=== PATIENT | male | born 1945 | race Caucasian/White ===

== ENCOUNTER 2018-06-12 11:00 | Outpatient (CLI) | payer MEDICARE, OTHER ==
[~2018-06-12] VITALS: Ht 188 cm; Wt 136.8 kg
--- NOTE | ~2018-06-12 | OP ---
PATIENT NAME: JONY LUTZ MEDICAL RECORD: [id number] :49 LOCATION:D.CAT ADMISSION DATE: SURGEON: KERVIN MARTÍNEZ MD DATE OF OPERATION: 06/12/2018 LEFT HEART CATHETERIZATION AND SELECTIVE CORONARY ANGIOGRAPHY PLUS RUG WEAVER AND STENT REPORT PROCEDURES: Left heart catheterization, selective coronary angiography, right radial approach. CATHETERS: Radial sheath, [place] catheter. The procedure was well tolerated. We proceeded immediately to RUG WEAVER and stenting of LAD after diagnostic was finished. FINDINGS: Left ventriculography in 30-degree SUAZO view: Normal wall motion and normal systolic function. CORONARY ANATOMY: LEFT MAIN: Left main is free of disease. LAD: It has a tight 90% plus stenosis in its midportion, somewhat diffusely diseased. CIRCUMFLEX: Circumflex is free of disease. RIGHT CORONARY ARTERY: Somewhat of a codominant system, free of disease. IMPRESSION: Normal LV systolic function. A 90% plus stenosis in the LAD. PLAN: Intervention momentarily. DESCRIPTION OF PROCEDURE: Using indwelling sheath, a XB JL3.5 guiding catheter provided excellent guide catheter support followed by 300-cm Whisper wire was placed across the tightly occluded LAD, 90% plus, down this portion of vessel. Predeployment balloon was a 3.0 x 15-mm [place]. Next, stents were deployed in the following fashion. A 3.5 x 18-mm Drummonds drug-eluting stent inflated up to 14 atmospheres distally and more proximally at 14 atmospheres was a 3.5 x 15-mm Yon drug-eluting stent. Final angiography shows excellent resolution of 90% plus stenosis with no significant residual. YAMIL flow was 3 throughout the procedure. Integrilin was used in the case. Sheath was closed with ExoSeal device. Plavix was loaded in the lab. TRANSINT:[id number] Voice Confirmation ID: [id number] DOCUMENT ID: [id number] KERVIN MARTÍNEZ MD at 2229 CC: [id number] DICTATION DATE: 06/12/18 1359 COMFORT STATION ATTENDANT: 06/12/18 1633 DEP CLI 06/12/18 [id number] [place] [address]
--- NOTE | ~2018-06-12 | HEMODYNAMI ---
PATIENT:JONY LUTZ MEDICAL RECORD: [id number] : 49 LOCATION:DSERA ADMISSION DATE: 06/12/18 Generatedon:06/12/201813:47 Patient name: JONY LUTZ Patient #: [id number] SSN: DO B: 1945 Date of study: 06/12/2018 Page: Of Hemodynamic Procedure Report Patient Data Patient Demographics Procedure consent was obtained First Name: JONY Gender: Male Last Name: NELDA : 1945 Patient #: [id number] Age: 73 year(s) Race: Unknown Additional ID: [id number] Contact details [address]: [address] [place] [address] State: [place] City: [place] Zip code: [address] Past Medical History Allergies Allergen Reaction Date Comments Reported Other allergy 06/12/2018 NAPROSYN, PCN, SULFA Admission Admission Data Admission Date: 06/12/2018 Admission Time: 11:00 Height (in.): 71 BSA: 2.52 (m2) Height (cm.): 180.34 BMI: 42.54 (kg/m2) Weight (lbs.): 305 Weight (kg.): 138.35 Lab Results Lab Result Date: 06/12/2018 Lab Result Time: 0:00 Biochemistry Name Units Result Min Max BUN mg/dl 9 --(*---)-- 7 18 Creatinine mg/dl 0.8 --(-*--)-- 0.6 1.3 CBC Name Units Result Min Max Hemoglobin g/dl 15.4 --(-*--)-- 13.5 17.5 Procedure Procedure Types Cath Procedure Diagnostic Procedure C [facility] w/Coronaries Sedation Charges Moderate Sedation up to 15 minutes PCI Procedure Coronary Stent Coronary Stent Initial Procedure Description Procedure Date Procedure Date: 06/12/2018 Procedure Start Time: 13:16 Procedure End Time: 13:46 Procedure Staff Name Function Williams Rachel MD Performing Physician Virginia Sim RT Monitor Shanita Kerr RT Scrub Ngoc Bakari RN Nurse Procedure Data Cath Procedure Fluoroscopy Diagnostic fluoroscopy Total fluoroscopy Time: time: 10.4 min 10.4 min Diagnostic fluoroscopy Total fluoroscopy dose: dose: 1456 mGy 1456 mGy Contrast Material Contrast Material Type Amount (ml) Isovue 300 120 Entry Location Entry Primary Successful Side Size Upsize Upsize Entry Closure Larry ccessful Closure Location (Fr) 1 (Fr) 2 (Fr) Remarks Device Remarks Radial Right 6 Fr Mechanical artery Short Compression Estimated blood loss: 10 ml Diagnostic catheters Device Type Used For End Catheter Placement DIAGNOSTIC Fairborn 110cm 5 Procedure Fr catheter ([id number]) DIAGNOSTIC JL 3.5 5Fr Procedure catheter ([id number]) Procedure Complications No complications Procedure Medications Medication Administration Route Dosage 0.9% NaCl I.V. ml/hr Oxygen etCO2 Nasal cannula 2 l/min Lidocaine 2% added to field 20 Heparin Flush Bag added to field 2 bags (1000units/500ml NS) Radial Cocktail added to field 1 syringe (Verapomil 2mg/Nitro 400mcg/Heparin 1500units) Versed I.V. 2 mg Fentanyl I.V. 100 mcg Versed I.V. 2 mg Heparin Bolus I.V. 5000 units Integrilin (Bolus I.V. 11.3 ml 2mg/ml) Plavix P.O. 600 mg Hemodynamics Rest BSA: 2.52 (m2) HGB: 15.4 (g/dl) O2 Consumption: Estimated: 282.22 (ml/min) O2 Co nsumption indexed: Estimated:111.99 (ml/min/m) Heart Rate: 61 (bpm) Pressure Samples Time Site Value (mmHg) Purpose Heart Use Rate(bpm) 13:20 LV 111/9,15 Snapshot 76 Gradients Valve Time Site Site Mean SEP/DFP Peak To Heart Use 1 2 (mmHg) (sec/min) Peak Rate (mmHg) (bpm) Aortic 13:20 LV AO 70 Snapshots Pre Cath Intra NCS Post Cath Vital Signs Time Heart Resp SPO2 etCO2 NIBP (mmHg) Rhythm Pain Sedation Rate (ipm) (%) (mmHg) Status Level (bpm) 12:47:49 59 16 98 34.7 147/77(119) NSR 0 (11) 10(A) , No pain 12:52:23 61 12 98 36.2 144/76(115) NSR 0 (11) 10(A) , No pain 12:56:52 67 11 97 36.2 139/77(115) NSR 0 (11) 10(A) , No pain 13:01:18 62 12 96 28 142/74(108) NSR 0 (11) 10(A) , No pain 13:05:40 60 11 97 33.2 131/74(96) NSR 0 (11) 10(A) , No pain 13:10:02 62 10 98 36 136/74(113) NSR 0 (11) 10(A) , No pain 13:14:20 58 12 96 33.2 132/73(98) NSR 0 (11) 10(A) , No pain 13:18:43 65 11 97 33.2 121/64(98) NSR 0 (11) 9(A) , No pain 13:22:57 69 13 96 30 115/63(82) NSR 0 (11) 9(A) , No pain 13:27:17 65 10 97 32 128/66(100) NSR 0 (11) 9(A) , No pain 13:31:41 63 12 96 30 124/67(101) NSR 0 (11) 9(A) , No pain 13:36:03 65 11 96 32 127/71(98) NSR 0 (11) 10(A) , No pain 13:40:28 60 12 97 35.4 125/67(101) NSR 0 (11) 10(A) , No pain 13:44:44 60 11 97 33.2 128/72(107) NSR 0 (11) 10(A) , No pain Medications Time Medication Route Dose Verified Delivered Reason Not es Effectiveness by by 12:48:48 0.9% NaCl I.V. ml/hr Williams Grossman used for Virginie Bakari procedure MD CORDOVA 12:48:59 Oxygen etCO2 2 l/min Williams Grossman used for Nasal Virginie Bakari procedure cannula MD CORDOVA 12:49:05 Lidocaine 2% added 20ml Williams Kramer for local to vial [facility] field MD SHERMAN 12:49:11 Heparin Flush added 2 bags Williams Kramer used for Bag to [facility] procedure (1000units/500ml field MD SHERMAN NS) 12:50:20 Radial Cocktail added 1 Wililams Kramer used for (Verapomil to syringe Virginie Virginie procedure 2mg/Nitro field MD SHERMAN 400mcg/Heparin 1500units) 13:12:36 Versed I.V. 2 mg Williams Ngoc for sedation [facility] Harshal Villegas MD RN 13:12:42 Fentanyl I.V. 100 mcg Williams Bainyla for sedation St Harshal Villegas MD, RN 13:16:27 Versed I.V. 2 mg Williams Ngoc for sedation St Harshal Villegas MD, RN 13:32:12 Heparin Bolus I.V. 5000 Williams Ngoc for cirilo ified units [facility] anticoagulation with Dr. MD CORDOVA [place] 13:33:46 Integrilin I.V. 11.3 ml Williams Bainyla for was anurag (Bolus 2mg/ml) [place] Bakari anticoagulation 8.7 mL MD CORDOVA 13:39:28 Plavix P.O. 600 mg Williams Bainyla for [facility] antiplatelet MD CORDOVA therapy Procedure Log Time Note 12:30:35 Ngoc Villegas RN sent for patient. Start room use. 12:35:27 Signed procedure consent form obtained from patient. 12:35:28 Time tracking: Regular hours (M-F 7:00 - 5:00) 12:35:33 Plan of Care:Hemodynamics will remain stable., Cardiac rhythm will remain stable., Comfort level will be maintained., Respiratory function will remain adequate., Patient/ family verbilizes understanding of procedure., Procedure tolerated without complication., Recovers from procedure without complications.. 12:36:02 H&P Date Dictated: 06/07/2018 Within 30 days and on chart., H&P Addendum completed by physician on day of procedure. (MUST COMPLETE FOR ALL OUTPATIENTS). 12:36:09 Patient Height : 71 inches 12:36:13 Patient Weight : 305 lbs 12:39:43 Patient allergic to Other allergyNAPROSYN, PCN, SULFA 12:39:51 Patient received from Pre/Post Procedure Room to CCL 1 Alert and oriented. Tansferred to table in Supine position. 12:39:52 Warm blankets applied, and joe hugger turned on for patient comfort. 12:39:52 Correct patient and procedure confirmed by team. 12:39:53 ECG and BP/O2 sat monitors applied to patient. 12:46:21 Vital chart was started 12:48:48 0.9% NaCl ml/hr I.V. was administered by Ngoc Villegas RN; used for procedure; 12:48:59 Oxygen 2 l/min etCO2 Nasal cannula was administered by Ngoc Villegas RN; used for procedure; 12:49:05 Lidocaine 2% 20ml vial added to field was administered by Williams Rachel MD; for local anesthetic; 12:49:11 Heparin Flush Bag (1000units/500ml NS) 2 bags added to field was administered by Williams Rachel MD; used for procedure; 12:50:20 Radial Cocktail (Verapomil 2mg/Nitro 400mcg/Heparin 1500units) 1 syringe added to field was administered by Williams Rachel MD; used for procedure; 12:52:29 Baseline sample Acquired. 12:52:33 Rhythm: sinus rhythm 12:52:34 Full Disclosure recording started 12:52:35 Pre-procedure instructions explained to patient. 12:52:36 Pre-op teaching completed and patient verbalized understanding. 12:52:37 Family in patients room. 12:52:40 Patient NPO since Midnight. 12:52:44 Is the patient allergic to Iodine/contrast media? No. 12:52:47 Is patient on blood thinner?No 12:52:48 Patient diabetic? Yes. 12:52:49 If diabetic: On Metformin? No 12:52:52 Previous problem with sedation/anesthesia? No ? 12:52:52 Snore? Yes 12:52:55 Sleep apnea? Yes 12:53:01 Deviated septum? No 12:53:02 Opens mouth fully? Yes 12:53:03 Sticks out tongue? Yes 12:53:04 Airway obstruction? No ? 12:53:06 Dentures? No ? 12:53:15 Modified Jose's test Ulnar < 7 seconds 12:53:17 Patient pain scale 0/10 ?. 12:53:20 IV patent on arrival in left hand with 0.9% NaCl at [facility]. 12:53:25 Right Radial & Right Groin area was prepped with chlora-prep and draped in sterile fashion 12:53:26 Alarms reviewed by R. N. 12:53:27 Sharps counted by scrub and verified by R.N. 12:53:30 Use device set Radial Dx or PCI 12:53:31 ACIST Syringe (18170) opened to sterile field. 12:53:32 Bag Decanter (2001S) opened to sterile field. 12:53:33 ACIST Manifold (52260) opened to sterile field. 12:53:33 ACIST Hand Control (59677) opened to sterile field. 12:53:35 Tegaderm 4 x 4 (1626W) opened to sterile field. 12:53:36 Medline Cath Pack ([id number]) opened to sterile field. 12:53:37 DIAGNOSTIC WIRE .035 260cm J wire (624562) opened to sterile field. 12:53:37 MBrace Wrist Support ([id number]) opened to sterile field. 12:53:38 SHEATH 6Fr Prelude Radial ([id number]) opened to sterile field. 13:11:34 --------ALL STOP TIME OUT------ 13:11:34 Final Timeout: patient, procedure, and site verified with staff and physician. All members of the team are in agreement. 13:11:37 Right Radial & Right Groin site verified by team. 13:11:39 Physical assessment completed. ASA score P 2 - A patient with mild systemic disease as per Williams Rachel MD. 13:11:43 Sedation plan: IV Moderate Sedation Medication:Versed, Fentanyl 13:12:36 Versed 2 mg I.V. was administered by Ngoc Villegas RN; for sedation; 13:12:42 Fentanyl 100 mcg I.V. was administered by Ngoc Villegas RN; for sedation; 13:14:05 Lab Result : BUN 9 mg/dl 13:14:05 Lab Result : Creatinine 0.8 mg/dl 13:14:05 Lab Result : Hemoglobin 15.4 g/dl 13:14:09 Lab results completed and on chart. 13:15:52 Procedure started. 13:16:06 Local anesthetic to right radial artery with Lidocaine 2% by Williams Rachel MD.INITIAL ACCESS ONLY 13:16:27 Versed 2 mg I.V. was administered by Ngoc Villegas RN; for sedation; 13:17:01 A 6 Fr Short sheath was inserted into the Right Radial artery 13:17:37 A DIAGNOSTIC Fairborn 110cm 5 Fr catheter ([id number]) was advanced over the wire and used for Procedure. 13:18:38 LV gram done using SUAZO 13:18:48 Injector settings: Ml/sec: 7, Volume: 15, 13:20:29 EF : 55 % 13:20:38 LV hemodynamics recorded. 13:20:49 RCA angiography performed. 13:22:44 Catheter exchanged over wire. 13:23:03 GUIDE 5FR EBU 3.5 catheter ([id number]) opened to sterile field. 13:23:12 6 Fr EBU 3.5 guide catheter was inserted over the wire 13:25:21 UNABLE TO ENGAGE LCA. CATH REMOVED 13:26:04 A DIAGNOSTIC JL 3.5 5Fr catheter ([id number]) was advanced over the wire and used for Procedure. 13:27:54 LCA angiography performed. 13:27:55 Catheter exchanged over wire. 13:30:26 WHISPER 300cm guide wire ([id number]) opened to sterile field. 13:30:37 GUIDE 6FR JL 3.5 guide catheter ([id number]) opened to sterile field. 13:30:49 6 Fr JL 3.5 guide catheter was inserted over the wire 13:31:01 INFLATOR Merit BasixCompak (ND6284) opened to sterile field. 13:32:12 Heparin Bolus 5000 units I.V. was administered by Ngoc Villegas RN; for anticoagulation; verified with Dr. Gaston 13:33:46 Integrilin (Bolus 2mg/ml) 11.3 ml I.V. was administered by Ngoc Villegas RN; for anticoagulation; wasted 8.7 mL 13:33:57 Wire advanced across lesion. 13:34:16 WHISPER 300 wire advanced. 13:34:49 Inflate balloon Inflation number: 1 A EMERGE OTW 3.0 x 15 balloon ([id number]) was prepped and advanced across the Mid LAD, then inflated to 12 JESSIKA for 0:10 (min:sec). 13:35:19 Balloon removed over the wire. 13:37:52 Place stent Inflation Number: 2 A ANDREY OTW 3.5 x 18 stent ([id number]) was prepped and advanced across the Mid LAD. The stent was deployed at 14 JESSIKA for 0:10 (min:sec). 13:38:03 Stent catheter was removed intact over wire. 13:39:28 Plavix 600 mg P.O. was administered by Ngoc Villegas RN; for antiplatelet therapy; 13:40:32 Place stent Inflation Number: 3 A ANDREY OTW 3.5 x 15 stent ([id number]) was prepped and advanced across the Mid LAD. The stent was deployed at 14 JESSIKA for 0:10 (min:sec). 13:40:49 Stent catheter was removed intact over wire. 13:40:56 Wire removed. 13:40:57 Guide catheter removed. 13:41:24 TR BAND Large ([id number]) opened to sterile field. 13:41:31 Procedure ended.(Physican Out) 13:42:06 Sheath removed intact; hemostasis achieved with Mechanical Compression to the Right Radial artery. 13:42:16 Fluoroscopy time 10.40 minutes. 13:42:20 Fluoroscopy dose: 1456 mGy 13:42:20 Flurop Dose total: 1456 13:42:23 Contrast amount:Isovue 300 120ml. 13:42:25 Sharps counted by scrub and verified by R.N. 13:42:28 TR band inflated with 12cc of air. 13:42:31 Post-procedure physical assessment completed. ASA score P 2 - A patient with mild systemic disease as per Williams Rachel MD. 13:42:34 Post procedure rhythm: sinus bradycardia 13:42:37 Estimated blood loss: 10 ml 13:42:39 Post procedure instruction explained to patient.Patient verbalizes understanding. 13:42:39 Patient needs reinforcement of post procedure teaching. 13:45:15 Procedure type changed to Cath procedure, Diagnostic procedure, LHC, LHC w/Coronaries, Sedation Charges, Moderate Sedation up to 15 minutes, PCI procedure, Coronary Stent, Coronary Stent Initial 13:46:11 Procedure and supply charges have been captured, reviewed, submitted and are correct. 13:46:13 Procedure Complication : No complications 13:46:14 Vital chart was stopped 13:46:15 See physician's report for complete and final results. 13:46:25 Report given to Pre/Post Procedure Room. 13:46:28 Patient transfered to Pre/Post Procedure Room with Bed. 13:46:31 Procedure ended. 13:46:31 Full Disclosure recording stopped 13:46:34 End room use (Document Last) Intervention Summary Intervention Notes Time ActionType Lesion and Equipment Action# Pressure Duration Attributes Used 13:34:49 Inflate Mid LAD EMERGE OTW 1 12 00:10 balloon 3.0 x 15 balloon ([id number]) 13:37:52 Place stent Mid LAD ANDREY OTW 3.5 2 14 00:10 x 18 stent ([id number]) 13:40:32 Place stent Mid LAD ANDREY OTW 3.5 3 14 00:10 x 15 stent ([id number]) Device Usage Item Name Manufacture Quantity Catalog Number Hospital Part Current Minimal Lot# / Charge Number Stock Stock Serial# Code ACIST Syringe Acist 1 33669 022962 794136 506256 20 (00233) Medical Systems Colibri IO Bag Decanter Microtek 1 2001S 307903 58164 079823 5 (2001S) Medical Inc. ACIST Manifold Acist 1 46554 961209 857606 561445 5 (24136) Medical Systems Inc ACIST Hand Acist 1 85923 451939 925943 959602 5 Control (84364) Medical GainSpan Tegaderm 4 x 4 3M 1 1626W 899242 794926 023035 5 (1626W) Medline Cath Medline 1 [id number] 529165 18332 438044 5 Pack ([id number]) DIAGNOSTIC WIRE St Vic 1 905491 995404 603001 611976 30 .035 260cm J wire (085225) MBrace Wrist Advanced 1 140-0250-00 129306 72570 242789 5 Support Vascular ([id number]) Dynamics SHEATH 6Fr Merit 1 [id number] 674048 320922 713698 5 Prelude Radial Medical ([id number]) DIAGNOSTIC Terumo 1 40-0873 611164 482555 884457 5 Fairborn 110cm 5 Fr catheter (342575) GUIDE 5FR EBU Medtronic 1 [id number] 015009 114196 428914 1 3.5 catheter ([id number]) DIAGNOSTIC JL Cardinal 1 343448Q 049262 312762 821294 5 3.5 5Fr Health catheter (877464K) WHISPER 300cm Bennett 1 [id number] 598747 840534 796440 5 guide wire Vascular ([id number]) GUIDE 6FR JL Medtronic 1 [id number] 388303 82125 850444 1 3.5 guide catheter ([id number]) INFLATOR Merit Merit 1 FX4130 318270 287418 881089 15 [facility] ([id number]) EMERGE OTW 3.0 Lyons 1 [id number] 982578 119937 937275 5 x 15 balloon Scientific ([id number]) ANDREY OTW 3.5 x Medtronic 1 [id number] 684893 4061586 944239 5 [id number] 18 stent ([id number]) ANDREY OTW 3.5 x Medtronic 1 [id number] 914965 9008014 811985 5 [id number] 15 stent ([id number]) TR BAND Large Terumo 1 [id number] 773951 045329 230138 40 ([id number]) Signature Audit Hartsel Stage Time Signature Unsigned Intra-Procedure 06/12/2018 Virginia Sim 1:47:14 PM RT(R) Signatures Monitor : Virginia Sim Signature : RT Date : Time : [facility] [address] [place] [address]
[2018-06-12] MEDS ORDERED: GLIMEPIRIDE4 MG PO (11:21)
[2018-06-12] MEDS ORDERED: COZAAR100 MG PO (11:22)
[2018-06-12] MEDS ORDERED: SYNTHROID125 MCG PO (11:23)
[2018-06-12] MEDS ORDERED: ZOCOR20 MG PO (11:23)
[2018-06-12] MEDS ORDERED: HUMALOG 30100 UNITS/ SC (11:24)
[2018-06-12] MEDS ORDERED: VITAMIN D5000 UNIT PO (11:25)
[2018-06-12] MEDS ORDERED: TRESIBA FL100 UNIT/1 SQ (11:25)
[2018-06-12 11:45] VITALS: BP 129/78; Ht 188 cm; Wt 136.8 kg
[2018-06-12 11:57] LABS: BASOPHILS 0.6 % (0-2); EOSINOPHILS 3.5 % (0-7); HEMATOCRIT 43.2 % (42.0-54.0); HEMOGLOBIN 15.5 g/dL (13.5-17.5); IMMATURE GRANULOCYTES 0.2 % (0-5); LYMPHOCYTES 21.8 % (15-50); MCH 31.5 pg (26.0-34.0); MCHC 35.9 g/dL (31.0-37.0); MCV 87.8 fL (80.0-100.0); NEUTROPHILS 65.9 % (40-80); PLATELET COUNT 171 10x3/uL (130-400); RBC 4.92 10x6/uL (4.20-6.10); RDW 13.7 % (11.5-14.5); WBC 5.4 10x3/uL (4.8-10.8)
[2018-06-12 12:09] LABS: ANION GAP 12.4 mmol/L (8-16); CALCIUM 8.4 mg/dL (8.5-10.1); CARBON DIOXIDE 28.4 mmol/L (21.0-32.0); CREATININE - SERUM 1.7 mg/dL (0.6-1.3); POTASSIUM - SERUM 3.8 mmol/L (3.5-5.1)
[2018-06-12] MEDS ORDERED: PLAVIX75 MG PO (13:51)
== END 2018-06-12 17:40 ==
LOC: D.CATH 11:00
PROVIDERS: Internal Medicine Interventional Cardiology
DX: I25.119 Atherosclerotic heart disease of native coronary artery with unspecified angina pectoris (principal); Z01.812 Encounter for preprocedural laboratory examination
CPT/HCPCS: 93458; C9600

== ENCOUNTER 2019-06-29 19:10 | Inpatient (IN) | payer MEDICARE ==
[~2019-06-29] VITALS: Ht 188 cm; Wt 134.3 kg
[~2019-06-29 19:10] MED LIST: COZAAR100 MG PO; GLIMEPIRIDE4 MG PO; HUMALOG 30100 UNITS/ SC; PLAVIX75 MG PO; SYNTHROID125 MCG PO; TRESIBA FL100 UNIT/1 SQ; VITAMIN D5000 UNIT PO; ZOCOR20 MG PO
[2019-06-29] MEDS ORDERED: TOUJEO SOL300 UNIT/1 SC (19:33)
[2019-06-29 19:54] LABS: BASOPHILS 0.2 % (0-2); EOSINOPHILS 0.4 % (0-7); HEMATOCRIT 46.1 % (42.0-54.0); HEMOGLOBIN 15.9 g/dL (13.5-17.5); IMMATURE GRANULOCYTES 0.2 % (0-5); LYMPHOCYTES 8.4 % (15-50); MCH 31.1 pg (26.0-34.0); MCHC 34.5 g/dL (31.0-37.0); MCV 90.2 fL (80.0-100.0); MEAN PLATELET VOLUME 9.1 fL (7.4-10.4); MONOCYTES 8.8 % (2-11); RBC 5.11 10x6/uL (4.20-6.10); RDW 13.6 % (11.5-14.5); WBC 10.9 10x3/uL (4.8-10.8)
[2019-06-29 19:55] LABS: PLATELET COUNT 224 10x3/uL (130-400)
[2019-06-29 20:06] LABS: CALC OSMOLALITY 286 mosm/kg (275-300); CARBON DIOXIDE 29.6 mmol/L (21.0-32.0); CHLORIDE - SERUM 101 mmol/L (98-107); CREATININE - SERUM 2.6 mg/dL (0.6-1.3); GLUCOSE 136 mg/dL (74-106); POTASSIUM - SERUM 3.7 mmol/L (3.5-5.1); SODIUM 138 mmol/L (136-145); UREA NITROGEN 38 mg/dL (7-18); eGFR NON AFRICAN AMERICAN 26 mL/min (90-120)
[2019-06-29 20:23] LABS: ALBUMIN 3.7 g/dL (3.4-5.0); ALKALINE PHOSPHATASE 122 U/L (46-116); ALT (SGPT) 28 U/L (10-68); BILIRUBIN - TOTAL 1.11 mg/dL (0.2-1.3); LIPASE 107 U/L (73-393); PRO BNP 47 pg/mL (0-125); PROTEIN - SERUM 7.8 g/dL (6.4-8.2); TROPONIN-I < 0.017 ng/mL (0.000-0.060)
--- NOTE | 2019-06-29 20:51 | NUR ---
PATIENT LEFT THE DOCTORS OFFICE AFTER BEING DIAGNOSED WITH A KIDNEY STONE AND SENT HERE FOR FURTHER EVALUATION. PATIENT HAVING NAUSEA AND LEFT LOWER ABD PAIN THAT RADIATES TO THE LEFT FLANK.
--- NOTE | 2019-06-29 21:34 | NUR ---
RECEIVED FROM ER VIA [facility].AWAKE,ALERT.C/O LEFT FLANK PAIN. IV TO LAC INTACT WITHOUT IV INFUSING. TRANSFERRED TO BED WITHOUT COMPLAITNS. ORIENTED TO ROOM IN REACH
[2019-06-29 22:00] VITALS: BP 151/74; BMI 38.1
--- NOTE | 2019-06-29 22:15 | NUR ---
ADMISSION ASSESSMENT COMPLETE. CARE PLAN COMPLETE.
[2019-06-30] VITALS (7 sets, daily range): BP systolic 115–163; BP diastolic 54–82; Ht 188 cm; Wt 134.3 kg
[2019-06-30 03:54] LABS: APPEARANCE CLEAR (CLEAR); COLOR YELLOW (YELLOW)
[2019-06-30 03:55] LABS: BILIRUBIN NEGATIVE (NEGATIVE); GLUCOSE 250 mg/dL (NEGATIVE); KETONE NEGATIVE (NEGATIVE); NITRITE NEGATIVE (NEGATIVE); PROTEIN NEGATIVE (NEGATIVE); SPECIFIC GRAVITY 1.015 (1.005-1.020); UROBILINOGEN NORMAL (NORMAL)
[2019-06-30 05:28] LABS: BASOPHILS 0 % (0-2); EOSINOPHILS 0.3 % (0-7); HEMATOCRIT 41.5 % (42.0-54.0); HEMOGLOBIN 14.1 g/dL (13.5-17.5); IMMATURE GRANULOCYTES 0.2 % (0-5); LYMPHOCYTES 9.7 % (15-50); MCV 91.2 fL (80.0-100.0); MONOCYTES 11.6 % (2-11); NEUTROPHILS 78.2 % (40-80); PLATELET COUNT 187 10x3/uL (130-400); RBC 4.55 10x6/uL (4.20-6.10); RDW 13.7 % (11.5-14.5); WBC 9.2 10x3/uL (4.8-10.8)
[2019-06-30 05:44] LABS: ALBUMIN 3.2 g/dL (3.4-5.0); ANION GAP 10.7 mmol/L (8-16); BILIRUBIN - TOTAL 0.95 mg/dL (0.2-1.3); CALCIUM 7.9 mg/dL (8.5-10.1); CARBON DIOXIDE 29.9 mmol/L (21.0-32.0); CREATININE - SERUM 2.6 mg/dL (0.6-1.3); MAGNESIUM - SERUM 1.8 mg/dL (1.8-2.4); PHOSPHOROUS 3.7 mg/dL (2.5-4.9); POTASSIUM - SERUM 3.6 mmol/L (3.5-5.1); PROTEIN - SERUM 6.7 g/dL (6.4-8.2)
[2019-06-30 05:53] LABS: APTT 27.5 SECONDS (22.8-39.4); INR 1.06 (0.85-1.17); PROTIME 13.3 SECONDS (11.6-15.0)
--- NOTE | 2019-06-30 07:44 | NUR ---
PT RESTING IN BED WITH EYES OPEN, CURRENTLY ON CPAP MACHINE, NO S/S OF DISTRESS AT THIS TIME. AT THE BEDSIDE. IV LOCATED TO LEFT AC RUNNING NS @ 125. DENIES NEEDS AT THIS TIME, WILL CONT TO MONITOR.
--- NOTE | 2019-06-30 11:41 | NUR ---
FSBS 62, NO INSULIN NEEDED. GAVE 4 OZ OF APPLE JUICE, WILL CONT TO MONITOR.
--- NOTE | 2019-06-30 21:30 | NUR ---
PT SITTING UP IN BEDSIDE CHAIR, AOX4. DENIES PAIN OR NEEDS. IV LEFT AC INFUSING NS @ 125. PT REMINDED HE WILL BE NPO AFTER MN FOR PROCEDURE. VERBALIZED UNDERSTANDING. DISCONNECTED PT FROM IV AND PROVIDED SUPPLIES FOR SHOWER. PT SHOWERED WITH DONALD CLENS. DENIES OTHER NEEDS. CL IN REACH, WILL CTM
[2019-07-01] VITALS: BP 124/50
[2019-07-01 04:00] VITALS: BP 118/56
[2019-07-01 05:18] LABS: BASOPHILS 0.5 % (0-2); EOSINOPHILS 2.4 % (0-7); HEMATOCRIT 37.9 % (42.0-54.0); HEMOGLOBIN 12.9 g/dL (13.5-17.5); LYMPHOCYTES 19.8 % (15-50); MCH 30.9 pg (26.0-34.0); MCV 90.9 fL (80.0-100.0); MONOCYTES 12.2 % (2-11); NEUTROPHILS 65.1 % (40-80); PLATELET COUNT 178 10x3/uL (130-400); RBC 4.17 10x6/uL (4.20-6.10); RDW 13.6 % (11.5-14.5)
[2019-07-01 05:19] LABS: WBC 5.9 10x3/uL (4.8-10.8)
[2019-07-01 05:42] LABS: ANION GAP 11.9 mmol/L (8-16); CALCIUM 7.6 mg/dL (8.5-10.1); CARBON DIOXIDE 28.4 mmol/L (21.0-32.0); CREATININE - SERUM 2.2 mg/dL (0.6-1.3); MAGNESIUM - SERUM 1.8 mg/dL (1.8-2.4); PHOSPHOROUS 3.4 mg/dL (2.5-4.9); POTASSIUM - SERUM 3.3 mmol/L (3.5-5.1)
--- NOTE | 2019-07-01 07:20 | NUR ---
PT RESTING IN BED. NO SIGNS OF DISTRESS. IV TO LEFT AC PATENT NO REDNESS OR TENDERNESS. DENIES ANY FURTHER NEED AT THIS TIME. CALL LIGHT IN REACH. BED LOW POSITION. FAMILY AT BEDSIDE
[2019-07-01 08:40] VITALS: BP 130/74
[2019-07-01 10:32] VITALS: BP 123/46
--- NOTE | 2019-07-01 11:29 | MORECARE ---
CASE MANAGEMENT DISCHARGE SUMMARY PATIENT: JONY LUTZ UNIT: [id number] ADM DATE: 06/29/19 AGE: 74 : [birth year] SEX: M ROOM/BED: D.2226 AUTHOR: ANIVAL LIAO PHYSICIAN: REFERRING PHYSICIAN: JO DOMINGUEZ MD DATE OF SERVICE: 07/01/19 Discharge Plan Patient Name: JONY LUTZ Facility: [facility]:[place] : 1945 Planned Disposition: Home Anticipated Discharge Date: 07/01/19 Discharge Date: Expected LOS: 2 Initial Reviewer: [email or web address] Initial Review Date: 07/01/2019 Generated: 07/01/19 12:29 pm Comments DCP- Discharge Planning Updated by [email or web address]: Juana Ramon on 07/01/19 10:[address] Patient Name: JONY LUTZ Admission Status: ER Accout number: [id number] Admission Date: 06-29-2019 : 1945 Admission Diagnosis: Attending: JO DOMINGUEZ Current LOS: 2 Anticipated DC Date: 07-01-2019 Planned Disposition: Home Primary Insurance: [facility] [employer] Discharge Planning Comments: CM met with patient at bedside after explaining CM role and obtaining verbal consent. CM discussed availability / needs of home health, REHAB and medical equipment. PATIENT DENIES ANY DISCHARGE NEEDS. CM TO FOLLOW AND ASSIST NEEDED. Fight Manager: Juana Ramon DCPIA - Discharge Planning Initial Assessment Updated by [email or web address]: Juana Ramon on 07/01/19 11:26 am * Is the patient Alert and Oriented? Yes * PCP NONE HERE BUT HAS NEPH AND CARD * Pharmacy [facility] [address] * Preadmission Environment Home with Family * ADLs Independent * Equipment CPAP * Community resources currently utilized None * Additional services required to return to the preadmission environment? No * Can the patient safely return to the preadmission environment? Yes * Has this patient been hospitalized within the prior 30 days at any hospital? No Patient Name: JONY LUTZ Page 51009 at 1129 All edits/amendments must be made on the electronic document DICTATION DATE: 07/01/19 1129 CHEMICAL MACHINE TENDER: WALDEMAR 07/01/19 1129 RPT#: [id number] DC DATE: STATUS: ADM IN [facility] [address] [place] [address] END OF REPORT
[2019-07-01 13:22] VITALS: BP 137/64
[2019-07-01] MEDS ORDERED: FLOMAX0.4 MG PO (13:33)
[2019-07-01] MEDS ORDERED: HYDROCODON-ACE1 EAC7 PO (13:34)
--- NOTE | 2019-07-01 14:47 | OP ---
PATIENT NAME: AKASH LUTZ MEDICAL RECORD: [id number] :[birth year] LOCATION:D.MS [id number] ADMISSION DATE:06/29/19 SURGEON: AKASH DAVIS MD DATE OF OPERATION: 07/01/2019 SURGEON: Akash Davis MD DIAGNOSIS: Left distal ureteral stone 10 x 12 mm. PROCEDURES: Cystoscopy, left retrograde pyelogram, left ureteral stent insertion 6-Bulgarian x 26 cm with string attached. FINDINGS: On fluoroscopy, radiodense left distal ureteral stone. Cystoscopy, obstructive lateral lobes of the prostate with a tall bladder neck. He has no median lobe. There are single ureteral orifices bilaterally and no bladder tumors were seen. The retrograde pyelogram shows hydroureteronephrosis on the left side proximal to the stone. BLOOD LOSS: None. CLINICAL HISTORY: This is a 74-year-old male, who has had a previous history of kidney stones. He came to the ER with acute left flank pain, which has been present for over [address] scan shows a large stone lodged in the left distal ureter with proximal hydronephrosis. This was based on a CT scan done elsewhere. When he came here, I obtained a KUB and it shows a 10 x 12 mm stone in the pelvis, which is presumed to be the kidney stone. He comes today to the OR. Originally, I had intended to perform ureteroscopy, but upon obtaining another KUB today, which showed the size of the stone, I decided that it would be more expedient and less traumatic to the ureter to merely insert a stent today and bring him back at a future date for lithotripsy. HE IS ALLERGIC TO SULFA, PENICILLIN AND NAPROXEN WELL MELOXICAM. He was given Levaquin 500 mg IV machine stone polisher apprentice to the OR. DESCRIPTION OF PROCEDURE: The patient was given IV sedation. He was then placed into lithotomy position. He must have restless legs syndrome as his legs kept moving throughout the case. Cystoscopy was performed. Findings are as outlined above. The left ureteral orifice was accessed using an open-ended ureteral catheter. We then injected diluted contrast and the contrast was seen to go around the stone and up into the dilated proximal hydronephrotic ureter. No other stones or filling defects were seen. A sensor wire was then inserted through the lumen of the ureteral catheter. This managed to get around the stone and up into the renal pelvis. We then removed the open-ended ureteral catheter. Over the wire, we inserted the stent 6-Bulgarian x 26 cm. Once the stent was in correct position, the wire was withdrawn entirely. The distal end of the stent was pushed in using a pusher. The bladder was then emptied through the cystoscope sheath and then the scope was removed. The string on the distal end of the stent is maintained. It was tied to itself in a knot and then cut shorter. The patient will be discharged home with a prescription for pain medication and Flomax. I will see him back in the office to arrange lithotripsy as an outpatient. TRANSINT:[id number] Voice Confirmation ID: [id number] DOCUMENT ID: [id number] OPERATIVE REPORT [id number] AKASH LUTZ, AKASH John MD at 1447 CC: [id number] DICTATION DATE: 07/01/19 1004 GUEST EXPERIENCE MANAGER: 07/01/[address] [facility] [address] [place] [address]
--- NOTE | 2019-07-01 15:25 | NUR ---
DISCHARGE INSTRUCTIONS GIVEN. SEEMS TO UNDERSTAND INSTRCTIONS. IV OUT TIP INTACT. TELEMETRY OFF AND RETURNED. LEFT WITH HOSPTIAL STAFF TO GO HOME WITH IN PERSONAL RIDE.
--- NOTE | 2019-07-03 07:26 | MORECARE ---
CASE MANAGEMENT DISCHARGE SUMMARY PATIENT: JONY LUTZ UNIT: [id number] ADM DATE: 06/29/19 AGE: 74 : [birth year] SEX: M ROOM/BED: D.2226 AUTHOR: ANIVAL LIAO PHYSICIAN: REFERRING PHYSICIAN: JO DOMINGUEZ MD DATE OF SERVICE: 07/03/19 Discharge Plan Patient Name: JONY LUTZ Facility: [facility]:[place] : 1945 Planned Disposition: Home Anticipated Discharge Date: 07/01/19 Discharge Date: 07/01/2019 Expected LOS: 2 Initial Reviewer: [email or web address] Initial Review Date: 07/01/2019 Generated: 07/03/19 8:26 am Comments DCP- Discharge Planning Updated by [email or web address]: Juana Ramon on 07/01/19 10:[address] Patient Name: JONY LUTZ Admission Status: ER Accout number: [id number] Admission Date: 06-29-2019 : 1945 Admission Diagnosis: Attending: JO DOMINGUEZ Current LOS: 2 Anticipated DC Date: 07-01-2019 Planned Disposition: Home Primary Insurance: [employer] Discharge Planning Comments: CM met with patient at bedside after explaining CM role and obtaining verbal consent. CM discussed availability / needs of home health, REHAB and medical equipment. PATIENT DENIES ANY DISCHARGE NEEDS. CM TO FOLLOW AND ASSIST NEEDED. Auto Body Repair Estimator: Juana Ramon DCPIA - Discharge Planning Initial Assessment Updated by [email or web address]: Juana Ramon on 07/01/19 11:26 am * Is the patient Alert and Oriented? Yes * PCP NONE HERE BUT HAS NEPH AND CARD * Pharm[facility] [address] * Preadmission Environment Home with Family * ADLs Independent * Equipment CPAP * Community resources currently utilized None * Additional services required to return to the preadmission environment? No * Can the patient safely return to the preadmission environment? Yes * Has this patient been hospitalized within the prior 30 days at any hospital? No Last DP export: 07/01/19 10:29 Patient Name: JONY LUTZ Page [id number] at 0726 All edits/amendments must be made on the electronic document DICTATION DATE: 07/03/19725 HOOP RIVETER: WALDEMAR 07/03/19725 RPT#: [id number] DC DATE:07/01/19 STATUS: DIS IN [facility] [address] [facility] [place] [address] END OF REPORT
[2019-07-25] MEDS ORDERED: CIPRO500 MG PO (13:00)
== END 2019-07-01 15:26 | disposition home or self-care (01) | DRG 661 ==
LOC: D.ER 19:10 → D.MS 19:41
PROVIDERS: Family Medicine; Urology; ADMIT Internal Medicine Nephrology; ATTEND Internal Medicine Nephrology
PROC: 0T778DZ Dilation of Left Ureter with Intraluminal Device, Via Natural or Artificial Opening Endoscopic (ICD-10-PCS; principal; 2019-07-01 09:00)
PROC: BT1F1ZZ Fluoroscopy of Left Kidney, Ureter and Bladder using Low Osmolar Contrast (ICD-10-PCS; 2019-07-01 09:00)
DX: N13.2 Hydronephrosis with renal and ureteral calculous obstruction (principal); N17.9 Acute kidney failure, unspecified; Z87.442 Personal history of urinary calculi; I12.9 Hypertensive chronic kidney disease with stage 1 through stage 4 chronic kidney disease, or unspecified chronic kidney disease; E11.22 Type 2 diabetes mellitus with diabetic chronic kidney disease; N18.3 Chronic kidney disease, stage 3 (moderate); I25.10 Atherosclerotic heart disease of native coronary artery without angina pectoris; G47.33 Obstructive sleep apnea (adult) (pediatric); M54.9 Dorsalgia, unspecified; N40.0 Benign prostatic hyperplasia without lower urinary tract symptoms; E78.5 Hyperlipidemia, unspecified; M19.90 Unspecified osteoarthritis, unspecified site

== ENCOUNTER → 2019-07-10 09:53 | Outpatient (CLI) | payer MEDICARE ==
[2019-06-30 12:02] VITALS: BMI 38.0
[~2019-07-10 09:53] MED LIST changes: +CIPRO500 MG PO; +FLOMAX0.4 MG PO; +HYDROCODON-ACE1 EAC7 PO; +TOUJEO SOL300 UNIT/1 SC
--- NOTE | 2019-07-17 08:48 | EC ---
PATIENT:JONY LUTZ DATE OF SERVICE: 07/10/19 SEX: M MEDICAL RECORD: [id number] DATE OF : [birth year] LOCATION:[facility] AGE OF PATIENT: 74 ADMISSION DATE: 07/10/19 REFERRING PHYSICIAN: INTERPRETING PHYSICIAN: KERVIN MARTÍNEZ MD ECHOCARDIOGRAM REPORT ECHO CHARGES 4 ECHO COMPLETE Date: 07/10/19 CLINICAL DIAGNOSIS: CAD ECHOCARDIOGRAPHIC MEASUREMENTS (adult normal given) AC root (d.<3.7cm) 4.7 cm LV Septum d (<1.2 cm> 1.4 cm Valve Excursion 2.1 cm LV Septum (systole) 1.9 cm Left Atria (s.<4.0cm> 4.3 cm LVPW d(<1.2cm) 1.4 cm RV (d.<2.3cm) 3.9 cm LVPW (sytole) 1.8 cm LV diastole(<5.6CM) 4.8 cm MV E-F(>70mm/sec) cm LV systole 3.5 cm LVOT Diameter 2.3 cm MV exc.(>10mm) 1.4 cm Est.ejection fraction (50-75%) % DOPPLER: LVIT cm/sec A 83.0 cm/sec E 66.0 cm/sec LA cm/sec RVSP 13 mmHg LVOT 92 cm/sec AOP1/2T m/s Asc. Ao 109 cm/sec RVOT 92 cm/sec RA cm/sec PA 125 cm/sec AV Gradient Peak 4.74 mmHg AV Mean 2.56 mmHg AV Area 4.0 cm MV Gradient Peak 3.53 mmHg MV Mean 1.42 mmHg MV Area cm COMMENTS: Unload Associate: 2 TACO MUÑOZ Embedded Software Programmer: 3 Dr. Gaston TAPE# PACS Pericardial Effusion N DATE OF SERVICE: Adequate 2D, color flow imaging, spectral Doppler, and M-Mode. LVH is present. LV internal dimensions are normal. Wall motion is normal. EF greater than or equal to 55%. Aortic valve is tricuspid. No evidence of stenosis by Doppler interrogation. Left atrium is dilated at 4.3 cm. Mitral valve shows no prolapse. Trace MR. Right-sided chambers are grossly normal. Mild TR. ECHOCARDIOGRAM REPORT [id number] JONY LUTZ TRANSINT:[id number] Voice Confirmation ID: [id number] DOCUMENT ID: [id number] KERVIN MARTÍNEZ MD at 0848 CC: [id number] DICTATION DATE: 07/12/19 154 MANAGER TRUST: 07/12/19 1800 DEP CLI 07/10/19 [facility] [address] [place] [id number]
== END | disposition home or self-care (01) ==
LOC: D.HCCECHO 09:53
PROVIDERS: ATTEND Internal Medicine Interventional Cardiology
DX: I25.10 Atherosclerotic heart disease of native coronary artery without angina pectoris (principal)

== ENCOUNTER 2019-07-26 09:47 | Day surgery (SDC) | payer MEDICARE ==
[~2019-07-26] VITALS: Ht 185.4 cm; Wt 136.1 kg
[2019-07-26 10:24] LABS: ANION GAP 10.6 mmol/L (8-16); CALCIUM 8.7 mg/dL (8.5-10.1); CARBON DIOXIDE 31.4 mmol/L (21.0-32.0); CREATININE - SERUM 1.7 mg/dL (0.6-1.3)
[2019-07-26 11:43] LABS: HEMATOCRIT 44.1 % (42.0-54.0); HEMOGLOBIN 15.1 g/dL (13.5-17.5); MCH 30.4 pg (26.0-34.0); MCHC 34.2 g/dL (31.0-37.0); MCV 88.7 fL (80.0-100.0); RBC 4.97 10x6/uL (4.20-6.10); RDW 13.4 % (11.5-14.5); WBC 4.8 10x3/uL (4.8-10.8)
[2019-07-26 11:46] LABS: MEAN PLATELET VOLUME 9.4 fL (7.4-10.4)
[2019-07-26 12:10] VITALS: BP 121/64; Ht 185.4 cm; Wt 136.1 kg
--- NOTE | 2019-07-27 10:14 | OP ---
PATIENT NAME: AKASH LUTZ MEDICAL RECORD: [id number] :49 LOCATION:[facility] ADMISSION DATE: SURGEON: AKASH DAVIS MD DATE OF OPERATION: 07/26/2019 SURGEON: Akash Davis MD ANESTHESIA: General anesthesia by Zac Miranda CRNA. DIAGNOSIS: Left distal ureteral stone 10 x 12 mm. PROCEDURE: Left ESWL times 4000 shocks. FINDINGS: Radiodense left distal ureteral stone. ESTIMATED BLOOD LOSS: None. CLINICAL HISTORY: This is a 74-year-old male, who was found to have a large left distal ureteral stone. I have inserted a left ureteral stent. He now comes to have lithotripsy to break up the stone. HE IS ALLERGIC TO PENICILLIN, SULFA, NAPROXEN, AND MELOXICAM. He was given Levaquin IV licensing and registration director to the OR. DESCRIPTION OF PROCEDURE: The patient was placed on the treatment table. We were able to see the stone easily. We had to place him in a slightly oblique position in order to clear the sacrum from the path of the sound waves. He was then given induction of general anesthesia. 4000 shocks were given to the stone. It does not look much different after the treatment, but we are hoping that it has developed internal cracks and stresses and that as time goes on he will start to lose flakes and pieces of the stone in the urine. I will see him in followup in 2 weeks' time with a KUB. TRANSINT:[id number] Voice Confirmation ID: [id number] DOCUMENT ID: [id number] AKASH DAVIS MD at 1014 CC: [id number] DICTATION DATE: 07/26/191833 SENIOR DATASTAGE DEVELOPER: 07/26/19 [address] [facility] 07/26/[id number] [place] [address]
== END 2019-07-26 20:15 | disposition home or self-care (01) ==
LOC: D.OPS 09:47 → D.PAN 12:30 → D.OPS 20:15
PROVIDERS: Anesthesiology; ATTEND Urology
DX: N20.1 Calculus of ureter (principal); E03.9 Hypothyroidism, unspecified; I10 Essential (primary) hypertension; E11.9 Type 2 diabetes mellitus without complications

== ENCOUNTER → 2019-08-10 10:04 | Outpatient (CLI) | payer MEDICARE ==
[2019-07-26 12:10] VITALS: BMI 39.6
== END | disposition home or self-care (01) ==
LOC: D.RAD 10:04
PROVIDERS: ATTEND Urology
DX: N20.0 Calculus of kidney (principal)

== ENCOUNTER 2019-08-30 09:25 | Day surgery (SDC) | payer MEDICARE ==
[~2019-08-30] VITALS: Ht 185.4 cm; Wt 134.3 kg
[2019-08-30 10:21] LABS: ANION GAP 10.7 mmol/L (8-16); CALCIUM 8.5 mg/dL (8.5-10.1); CARBON DIOXIDE 32.2 mmol/L (21.0-32.0); POTASSIUM - SERUM 3.9 mmol/L (3.5-5.1)
[2019-08-30 10:24] LABS: HEMATOCRIT 41.8 % (42.0-54.0); HEMOGLOBIN 14.4 g/dL (13.5-17.5); MCH 30.6 pg (26.0-34.0); MCHC 34.4 g/dL (31.0-37.0); MCV 88.9 fL (80.0-100.0); MEAN PLATELET VOLUME 8.7 fL (7.4-10.4); RBC 4.7 10x6/uL (4.20-6.10); WBC 8.3 10x3/uL (4.8-10.8)
[2019-08-30 10:47] VITALS: BP 116/56; Ht 185.4 cm; Wt 134.3 kg
--- NOTE | 2019-08-30 16:45 | NUR ---
1645 IV REMOVED AND PRESSURE APPLIED.
--- NOTE | 2019-08-30 17:11 | NUR ---
1645 IV REMOVED AND INSTRUCTIONS GIVEN.
--- NOTE | 2019-08-31 09:27 | OP ---
PATIENT NAME: AKASH LUTZ MEDICAL RECORD: [id number] :49 LOCATION:[facility] ADMISSION DATE: SURGEON: AKASH DAVIS MD DATE OF OPERATION: 08/30/2019 SURGEON: Akash Davis MD ANESTHESIA: General anesthesia by Venessa Garcia CRNA. DIAGNOSIS: Left distal ureteral stone 9 mm. PROCEDURE: Left ESWL times 4000 shocks. FINDINGS: Radiodense left distal ureteral stone 9 mm. ESTIMATED BLOOD LOSS: None. CLINICAL HISTORY: This is a 74-year-old male, who initially presented with a 10 x 12 mm left distal ureteral stone. He had a left ureteral stent inserted and then he had lithotripsy times 4000 shocks on 07/26/2019. He has passed some of the gravel, but a followup KUB shows that the stone is still 9 mm of length. He comes to have this treated again. HE IS ALLERGIC TO PENICILLIN, SULFA, NAPROSYN, AND MELOXICAM. He was given Levaquin IV electron gun inspector to the OR. DESCRIPTION OF PROCEDURE: The patient was given induction of general anesthesia in supine position. The stone was then targeted in 2 planes. 4000 shocks were given to the stone. It seems to have become less dense with treatment. He will be seen back in followup in 2 weeks' time with a KUB. TRANSINT:[id number] Voice Confirmation ID: [id number] DOCUMENT ID: [id number] AKASH DAVIS MD at 0927 CC: [id number] DICTATION DATE: 08/30/19 1610 COPY DIRECTOR: 08/31/19 0146 [facility] 08/30/[address] [place] [id number]
== END 2019-08-30 17:00 | disposition home or self-care (01) ==
LOC: D.OPS 09:25 → D.PAN 12:20 → D.OPS 12:20 → D.PAN 13:45 → D.OPS 13:45
PROVIDERS: Anesthesiology; ATTEND Urology
DX: N20.1 Calculus of ureter (principal); E11.9 Type 2 diabetes mellitus without complications; I10 Essential (primary) hypertension; E78.00 Pure hypercholesterolemia, unspecified